=== PATIENT | female | born 1990 | race Caucasian/White ===

== ENCOUNTER 2017-04-07 11:07 | Inpatient (IN) | payer MEDICAID ==
[~2017-04-07] VITALS: Ht 170.2 cm; Wt 54.5 kg
[2017-04-07 11:39] LABS: BASOPHILS % (AUTO) 0.1 % (0-1); EOSINOPHILS # (AUTO) 0.3 X10'3 (0-0.9); EOSINOPHILS % (AUTO) 1.8 % (0-6); HEMATOCRIT 37.3 % (35.0-45.0); HEMOGLOBIN 12.8 g/dl (12.0-16.0); LYMPHOCYTES % (AUTO) 5.4 % (21-51); MEAN CORPUSCULAR HGB CONC 34.4 % (33.0-36.5); MEAN CORPUSCULAR VOLUME 84.4 FL (78-98); MEAN PLATELET VOLUME 7.7 FL (7.4-10.4); MONOCYTES # (AUTO) 1.1 X10'3 (0-0.9); MONOCYTES % (AUTO) 5.9 % (2-12); NEUTROPHILS # (AUTO) 15.8 X10'3 (1.8-7.7); NEUTROPHILS % (AUTO) 86.8 % (42-75); PLATELET COUNT 270 X10'3 (140-440); RED BLOOD COUNT 4.42 X10'6 (4.20-5.60); RED CELL DISTRIBUTION WIDTH 15.4 % (11.5-14.5); WHITE BLOOD COUNT 18.2 X10'3 (4.5-11.0)
[2017-04-07 11:49] LABS: INR 1.1 INR; PARTIAL THROMBOPLASTIN TIME 33 SECONDS (22-32); PROTHROMBIN TIME 11.2 SECONDS (9.0-12.0)
[2017-04-07 11:55] LABS: ALANINE AMINOTRANSFERASE 73 U/L (12-78); ALBUMIN 3.3 G/DL (3.4-5.0); ALBUMIN/GLOBULIN RATIO 0.6 (1.1-1.5); ALKALINE PHOSPHATASE 109 IU/L (46-116); ANION GAP 10 (8-16); ASPARTATE AMINO TRANSFERASE 37 U/L (10-37); BILIRUBIN,TOTAL 0.6 MG/DL (0.1-1.0); BLOOD UREA NITROGEN 11 MG/DL (7-18); BUN/CREATININE RATIO 14.3 (6.6-38.0); CALCIUM 9.4 MG/DL (8.5-10.1); CHLORIDE 97 MMOL/L (99-107); CREATININE 0.77 MG/DL (0.40-0.90); GLUCOSE 88 MG/DL (70-104); POTASSIUM 3.8 MMOL/L (3.5-5.1); SODIUM 135 MMOL/L (135-145); TOTAL CARBON DIOXIDE 27.9 MMOL/L (24-32); TOTAL PROTEIN 8.5 G/DL (6.4-8.2); eGFR > 90 ML/MIN
[2017-04-07 11:56] LABS: CLARITY,URINE CLOUDY (Clear); COLOR,URINE YELLOW (Yellow); GLUCOSE, URINE NEGATIVE (Neg); KETONES,URINE 15 mg/dl (Neg); LEUKOCYTE ESTERASE ,URINE MODERATE (Neg); NITRITES, URINE POSITIVE (Neg); OCCULT BLOOD,URINE TRACE-LYSED (Neg); PROTEIN,URINE 30 mg/dl (Neg)
[2017-04-07 11:57] LABS: UA COLLECTION TYPE CLN CATCH MIDSTREAM
[2017-04-07 12:02] LABS: TOTAL CELLS COUNTED 100
[2017-04-07 12:03] LABS: PLATELET ESTIMATE NORMAL
[2017-04-07 12:12] LABS: BACTERIA,URINE 4+ /HPF (Neg); RBC,URINE 0-2 /HPF (0-2); WBC,URINE 30-50 /HPF (0-4)
[2017-04-07 12:13] LABS: AMORPHOUS URATES 1+; MUCUS STRANDS MODERATE /LPF (Neg); SQUAMOUS EPITHELIAL CELL,UR FEW /LPF (FEW)
[2017-04-07] MEDS ORDERED: piperacillin/tazo 3.375gm/50ml 50 ML IV ONE (12:20)
[2017-04-07] MEDS ORDERED: vancomycin/NS 1 GM ADD-VANTAGE 250 ML IV ONE (12:20)
[2017-04-07] MEDS ORDERED: normal saline 1000ML IV soln IVB ONE (12:20)
[2017-04-07] MEDS ORDERED: methadone 10mg tablet PO ONE ×2 (13:20→16:00)
[2017-04-07] MEDS ORDERED: NO HOME MEDS (14:12)
[2017-04-07 14:33] LABS: URINE HCG NEGATIVE (NEG)
[2017-04-07 14:56] LABS: URINE AMPHETAMINE SCREEN POSITIVE (Neg); URINE BARBITUATE SCREEN NEGATIVE (Neg); URINE BENZODIAZEPINES SCREEN NEGATIVE (Neg); URINE CANNABINOID SCREEN POSITIVE (Neg); URINE COCAINE SCREEN NEGATIVE (Neg); URINE METHADONE SCREEN NEGATIVE (Neg); URINE OPIATE SCREEN POSITIVE (Neg); URINE PHENCYCLIDINE SCREEN NEGATIVE (Neg)
[2017-04-07 15:15] VITALS: BP 100/58
[2017-04-07 16:03] LABS: HIV ANTIBODY 1&2 RAPID NON-REACTIVE (Neg)
[2017-04-07] MEDS ORDERED: LORazepam 2 mg/ml vial IV ONE (16:15)
[2017-04-07] MEDS: normal saline 1000ml 1,000 ML IV SCH (16:15)
[2017-04-07] MEDS ORDERED: methylPREDNISolone sod succ 125mg/2ml vial IV ONE (16:40)
[2017-04-07] MEDS ORDERED: LORazepam 2 mg/ml vial IV PRN (17:05)
[2017-04-07] MEDS ORDERED: albuterol 2.5 MG/3 ML nebule NEB PRN (17:55)
[2017-04-07] MEDS ORDERED: metoprolol tartrate 25mg tablet PO PRN (18:35)
[2017-04-07] MEDS ORDERED: acetaminophen 325mg tablet PO PRN (18:35)
[2017-04-07 20:22] VITALS: BP 93/55
[2017-04-07 20:30] VITALS: BP 86/50
[2017-04-07 21:00] VITALS: BP 92/51
[2017-04-07] MEDS ORDERED: ipratropium/albuterol 3ml nebule NEB SCH (21:00)
[2017-04-07 21:25] VITALS: BP 91/46
[2017-04-08] VITALS: BP 83/44
[2017-04-08] MEDS: normal saline 1000ml 1,000 ML IV SCH ×2 (00:08→08:51)
[2017-04-08] MEDS: methylPREDNISolone sod succ 125mg/2ml vial IV SCH ×2 (01:44→08:09)
[2017-04-08 03:24] VITALS: BP 90/61
[2017-04-08 04:30] VITALS: BP 92/62
[2017-04-08 05:13] LABS: BASOPHILS % (AUTO) 0.1 % (0-1); EOSINOPHILS % (AUTO) 0 % (0-6); HEMATOCRIT 29.9 % (35.0-45.0); HEMOGLOBIN 10.1 g/dl (12.0-16.0); LYMPHOCYTES # (AUTO) 0.6 X10'3 (1.1-4.8); LYMPHOCYTES % (AUTO) 9.7 % (21-51); MEAN CORPUSCULAR HEMOGLOBIN 28.7 PG (27.0-31.0); MEAN CORPUSCULAR HGB CONC 33.9 % (33.0-36.5); MEAN CORPUSCULAR VOLUME 84.5 FL (78-98); MEAN PLATELET VOLUME 8.2 FL (7.4-10.4); MONOCYTES # (AUTO) 0.2 X10'3 (0-0.9); MONOCYTES % (AUTO) 3.4 % (2-12); NEUTROPHILS # (AUTO) 5.7 X10'3 (1.8-7.7); NEUTROPHILS % (AUTO) 86.8 % (42-75); PLATELET COUNT 192 X10'3 (140-440); RED BLOOD COUNT 3.54 X10'6 (4.20-5.60); RED CELL DISTRIBUTION WIDTH 15.8 % (11.5-14.5); WHITE BLOOD COUNT 6.5 X10'3 (4.5-11.0)
[2017-04-08 05:45] LABS: ALBUMIN 2.5 G/DL (3.4-5.0); ANION GAP 7 (8-16); BLOOD UREA NITROGEN 11 MG/DL (7-18); BUN/CREATININE RATIO 16.4 (6.6-38.0); CALCIUM 8.1 MG/DL (8.5-10.1); CHLORIDE 104 MMOL/L (99-107); CREATININE 0.67 MG/DL (0.40-0.90); GLUCOSE 136 MG/DL (70-104); POTASSIUM 4.2 MMOL/L (3.5-5.1); SODIUM 138 MMOL/L (135-145); TOTAL CARBON DIOXIDE 27.1 MMOL/L (24-32); eGFR > 90 ML/MIN
[2017-04-08] MEDS ORDERED: normal saline 1000ml 1,000 ML IV ONE (07:45)
[2017-04-08 08:00] VITALS: BP 83/43
[2017-04-08] MEDS ORDERED: pantoprazole 40 MG vial IV SCH (08:00)
[2017-04-08] MEDS ORDERED: cefTRIAXone 1g/NS 100ml IVPB 100 ML IV SCH (08:00)
[2017-04-08] MEDS ORDERED: heparin, porcine 5000 units/ml vial SQ SCH (08:00)
[2017-04-08] MEDS ORDERED: azithromycin/NS 500mg/250ml 250 ML IV SCH (08:00)
[2017-04-08 08:30] VITALS: BP 102/58
[2017-04-08] MEDS ORDERED: methadone 10mg tablet PO SCH (09:00)
[2017-04-08 10:30] VITALS: BP 93/57
[2017-04-08] MEDS ORDERED: LEVO500T89 PO (15:02)
[2017-04-08] MEDS ORDERED: lactobacillus rhamnosus 10,000 MMU CELLS/CAPSULE PO SCH (17:30)
[2017-04-09 13:25] LABS: HEP A AB, IGM Negative (Negative); HEPATITIS C ANTIBODY >11.0 s/co ratio (0.0-0.9)
== END 2017-04-08 16:04 | disposition left against medical advice (07) | DRG 720 ==
LOC: ER 11:07 → ED HOLD 13:33 → CMPBEDREQ 19:49 → SUR 3N 20:20
PROVIDERS: ADMIT Family Medicine; ATTEND Hospitalist
DX: A41.9 Sepsis, unspecified organism (principal); J18.1 Lobar pneumonia, unspecified organism; N39.0 Urinary tract infection, site not specified; F11.20 Opioid dependence, uncomplicated; F12.90 Cannabis use, unspecified, uncomplicated; F15.10 Other stimulant abuse, uncomplicated; F32.9 Major depressive disorder, single episode, unspecified; F41.9 Anxiety disorder, unspecified; Z72.0 Tobacco use
CPT/HCPCS: 36415; 71045; 80048; 80053; 80305; 81001; 81025; 83605; 84145; 84484; 85025; 85610; 85730; 86703; 86706; 86709; 86803; 87040; 87070; 87077; 87088; 87186; 93005; 94760; 99285; C9113; J0456; J0696; J1644; J2543; J2930; J3370; J7030

== ENCOUNTER 2020-11-30 19:33 | Emergency (ER) | payer MEDICAID ==
[~2020-11-30] VITALS: Ht 170.2 cm; Wt 58.6 kg
[~2020-11-30 19:33] MED LIST: NO HOME MEDS
[2020-11-30] MEDS ORDERED: LIDOcaine 1% W/epiNEPHrine 1:200,000 10ml vial IJ ONE (22:00)
[2020-11-30] MEDS: TETanus/Pertussis (Acell)/Diphther VAC/PF (Tdap-Adult) 0.5ml syringe IMVAC ONE ×2 (22:29→22:45)
[2020-11-30] MEDS ORDERED: LIDOcaine 1% w/epiNEPHrine 1:200,000 30ml vial IJ ONE (22:30)
--- NOTE | 2020-11-30 22:45 | NUR ---
pt. refused tetnus
[2020-11-30 23:11] VITALS: BP 126/85
== END 2020-11-30 23:13 | disposition home or self-care (01) ==
LOC: ER 19:34
DX: S61.213A Laceration without foreign body of left middle finger without damage to nail, initial encounter (principal); R20.0 Anesthesia of skin; F11.90 Opioid use, unspecified, uncomplicated; W26.0XXA Contact with knife, initial encounter; Y93.89 Activity, other specified; Y92.89 Other specified places as the place of occurrence of the external cause; Y99.8 Other external cause status
CPT/HCPCS: 12001; 90715; 99282

== ENCOUNTER 2021-02-13 22:16 | Emergency (ER) | payer MEDICAID ==
[~2021-02-13] VITALS: Ht 170.2 cm; Wt 65.0 kg
[2021-02-13 23:12] LABS: BASOPHILS % (AUTO) 0.5 % (0-1); EOSINOPHILS # (AUTO) 0.1 X10'3 (0-0.9); EOSINOPHILS % (AUTO) 1.7 % (0-6); HEMATOCRIT 29.5 % (35.0-45.0); LYMPHOCYTES # (AUTO) 1.2 X10'3 (1.1-4.8); MEAN CORPUSCULAR HEMOGLOBIN 27.5 PG (27.0-31.0); MEAN CORPUSCULAR HGB CONC 33.8 g/dL (33.0-36.5); MEAN CORPUSCULAR VOLUME 81.5 FL (78-98); MEAN PLATELET VOLUME 7.8 FL (7.4-10.4); MONOCYTES # (AUTO) 0.9 X10'3 (0-0.9); MONOCYTES % (AUTO) 14.1 % (2-12); NEUTROPHILS # (AUTO) 3.9 X10'3 (1.8-7.7); NEUTROPHILS % (AUTO) 64.7 % (42-75); PLATELET COUNT 275 X10'3 (140-440); RED BLOOD COUNT 3.62 X10'6 (4.20-5.60); RED CELL DISTRIBUTION WIDTH 14.7 % (11.5-14.5); WHITE BLOOD COUNT 6.1 X10'3 (4.5-11.0)
[2021-02-13 23:23] LABS: ALANINE AMINOTRANSFERASE 25 U/L (12-78); ALBUMIN/GLOBULIN RATIO 0.6 (1.1-1.5); ALKALINE PHOSPHATASE 121 IU/L (46-116); ANION GAP 10 (8-16); ASPARTATE AMINO TRANSFERASE 17 U/L (10-37); BILIRUBIN,TOTAL 0.2 MG/DL (0.1-1.0); BLOOD UREA NITROGEN 11 MG/DL (7-18); BUN/CREATININE RATIO 19.6 (6.6-38.0); CALCIUM 9.3 MG/DL (8.5-10.1); CHLORIDE 103 MMOL/L (99-107); CREATININE 0.56 MG/DL (0.40-0.90); GLUCOSE 93 MG/DL (70-104); POTASSIUM 3.4 MMOL/L (3.5-5.1); SODIUM 139 MMOL/L (135-145); TOTAL CARBON DIOXIDE 26.1 MMOL/L (24-32); TOTAL PROTEIN 7.7 G/DL (6.4-8.2); eGFR > 90 ML/MIN
[2021-02-13 23:39] LABS: D-DIMER 1.03 MG/L FEU (0-0.50)
[2021-02-14] LABS: CLARITY,URINE CLOUDY (Clear); COLOR,URINE YELLOW (Yellow); GLUCOSE, URINE NEGATIVE (Neg); KETONES,URINE NEGATIVE (Neg); LEUKOCYTE ESTERASE ,URINE NEGATIVE (Neg); NITRITES, URINE POSITIVE (Neg); OCCULT BLOOD,URINE NEGATIVE (Neg); PROTEIN,URINE NEGATIVE (Neg); UROBILINOGEN,URINE 0.2 E.U/dL (0.2-1.0)
[2021-02-14 00:01] LABS: URINE HCG POSITIVE (NEG)
[2021-02-14 00:10] LABS: UA COLLECTION TYPE CLN CATCH MIDSTREAM
[2021-02-14 00:14] LABS: BACTERIA,URINE 4+ /HPF (Neg); RBC,URINE 0-2 /HPF (0-2)
[2021-02-14 00:15] LABS: MUCUS STRANDS FEW /LPF (Neg); SQUAMOUS EPITHELIAL CELL,UR FEW /LPF (FEW); URINE AMPHETAMINE SCREEN POSITIVE (Neg); URINE BARBITUATE SCREEN NEGATIVE (Neg); URINE BENZODIAZEPINES SCREEN NEGATIVE (Neg); URINE CANNABINOID SCREEN POSITIVE (Neg); URINE COCAINE SCREEN NEGATIVE (Neg); URINE METHADONE SCREEN NEGATIVE (Neg); URINE OPIATE SCREEN NEGATIVE (Neg); URINE PHENCYCLIDINE SCREEN NEGATIVE (Neg)
[2021-02-14] MEDS ORDERED: PNV1TABL7 PO (00:33)
[2021-02-14] MEDS ORDERED: enoxaparin 100mg/ml syringe SUBCUT ONE (00:35)
[2021-02-14 00:56] VITALS: BP 108/60
== END 2021-02-14 00:52 | disposition home or self-care (01) ==
LOC: ER 22:18
DX: O26.90 Pregnancy related conditions, unspecified, unspecified trimester (principal); Z20.822 Contact with and (suspected) exposure to COVID-19; R06.02 Shortness of breath; R05.9 Cough, unspecified; R09.89 Other specified symptoms and signs involving the circulatory and respiratory systems; F11.90 Opioid use, unspecified, uncomplicated; Z3A.00 Weeks of gestation of pregnancy not specified
CPT/HCPCS: 36415; 71045; 80053; 80305; 81001; 81025; 83880; 84484; 85025; 85379; 87077; 87088; 87186; 87635; 93005; 96372; 99285; C9803; J1650; 81003

== ENCOUNTER 2021-02-16 12:16 | Emergency (ER) | payer MEDICAID ==
[~2021-02-16] VITALS: Ht 170.2 cm; Wt 65.9 kg
[~2021-02-16 12:16] MED LIST changes: +PNV1TABL7 PO
[2021-02-16 12:49] VITALS: BP 158/99
[2021-02-16] MEDS ORDERED: enoxaparin 100mg/ml syringe SUBCUT ONE ×2 (15:35→15:45)
== END 2021-02-16 22:17 | disposition left against medical advice (07) ==
LOC: ER 12:17
DX: O99.511 Diseases of the respiratory system complicating pregnancy, first trimester (principal); R06.02 Shortness of breath; Z3A.01 Less than 8 weeks gestation of pregnancy; Z79.899 Other long term (current) drug therapy
CPT/HCPCS: 99281

== ENCOUNTER 2021-02-17 09:04 | Emergency (ER) | payer MEDICAID ==
[2021-02-17 10:36] LABS: D-DIMER 0.97 MG/L FEU (0-0.50)
[2021-02-17 10:41] LABS: ALANINE AMINOTRANSFERASE 29 U/L (12-78); ALBUMIN 3.1 G/DL (3.4-5.0); ALBUMIN/GLOBULIN RATIO 0.6 (1.1-1.5); ALKALINE PHOSPHATASE 119 IU/L (46-116); ANION GAP 12 (8-16); ASPARTATE AMINO TRANSFERASE 19 U/L (10-37); BILIRUBIN,TOTAL 0.2 MG/DL (0.1-1.0); BLOOD UREA NITROGEN 8 MG/DL (7-18); BUN/CREATININE RATIO 12.9 (6.6-38.0); CALCIUM 9.2 MG/DL (8.5-10.1); CHLORIDE 101 MMOL/L (99-107); CREATININE 0.62 MG/DL (0.40-0.90); GLUCOSE 147 MG/DL (70-104); POTASSIUM 3.6 MMOL/L (3.5-5.1); SODIUM 136 MMOL/L (135-145); TOTAL CARBON DIOXIDE 22.6 MMOL/L (24-32); eGFR > 90 ML/MIN
[2021-02-17 10:44] LABS: BASOPHILS % (AUTO) 0.3 % (0-1); EOSINOPHILS # (AUTO) 0.1 X10'3 (0-0.9); EOSINOPHILS % (AUTO) 1.3 % (0-6); HEMATOCRIT 32.2 % (35.0-45.0); HEMOGLOBIN 10.7 g/dl (12.0-16.0); LYMPHOCYTES # (AUTO) 1.1 X10'3 (1.1-4.8); MEAN CORPUSCULAR HGB CONC 33.2 g/dL (33.0-36.5); MEAN CORPUSCULAR VOLUME 81.5 FL (78-98); MEAN PLATELET VOLUME 8.1 FL (7.4-10.4); MONOCYTES # (AUTO) 0.5 X10'3 (0-0.9); MONOCYTES % (AUTO) 8.5 % (2-12); NEUTROPHILS # (AUTO) 4.3 X10'3 (1.8-7.7); NEUTROPHILS % (AUTO) 71.9 % (42-75); PLATELET COUNT 289 X10'3 (140-440); RED BLOOD COUNT 3.95 X10'6 (4.20-5.60); RED CELL DISTRIBUTION WIDTH 14.6 % (11.5-14.5)
[2021-02-17 14:22] VITALS: BP 113/70
== END 2021-02-17 14:28 | disposition home or self-care (01) ==
LOC: ER 09:04
DX: O26.891 Other specified pregnancy related conditions, first trimester (principal); R06.02 Shortness of breath; R00.0 Tachycardia, unspecified; R79.1 Abnormal coagulation profile; F11.90 Opioid use, unspecified, uncomplicated; Z79.899 Other long term (current) drug therapy; Z3A.01 Less than 8 weeks gestation of pregnancy
CPT/HCPCS: 36415; 71045; 78580; 80053; 85025; 85379; 93005; 99285; A9540

== ENCOUNTER 2021-09-28 12:09 | Emergency (ER) | payer MEDICAID ==
[~2021-09-28] VITALS: Ht 170.2 cm; Wt 68.2 kg
[2021-09-28 12:26] VITALS: BP 148/90
[2021-09-28 13:24] LABS: BASOPHILS % (AUTO) 0.4 % (0-1); EOSINOPHILS # (AUTO) 0.1 X10'3 (0-0.9); EOSINOPHILS % (AUTO) 1.4 % (0-6); HEMATOCRIT 30.8 % (35.0-45.0); HEMOGLOBIN 10.2 g/dl (12.0-16.0); LYMPHOCYTES # (AUTO) 1.7 X10'3 (1.1-4.8); LYMPHOCYTES % (AUTO) 25.6 % (21-51); MEAN CORPUSCULAR HEMOGLOBIN 27.1 PG (27.0-31.0); MEAN CORPUSCULAR HGB CONC 33.2 g/dL (33.0-36.5); MEAN CORPUSCULAR VOLUME 81.7 FL (78-98); MEAN PLATELET VOLUME 8.6 FL (7.4-10.4); MONOCYTES # (AUTO) 0.8 X10'3 (0-0.9); MONOCYTES % (AUTO) 11.6 % (2-12); PLATELET COUNT 267 X10'3 (140-440); RED BLOOD COUNT 3.78 X10'6 (4.20-5.60); RED CELL DISTRIBUTION WIDTH 17.4 % (11.5-14.5); WHITE BLOOD COUNT 6.5 X10'3 (4.5-11.0)
[2021-09-28 13:43] LABS: ALANINE AMINOTRANSFERASE 22 U/L (12-78); ALBUMIN/GLOBULIN RATIO 0.9 (1.1-1.5); ALKALINE PHOSPHATASE 84 IU/L (46-116); ANION GAP 12 (8-16); ASPARTATE AMINO TRANSFERASE 19 U/L (10-37); BILIRUBIN,TOTAL 0.2 MG/DL (0.1-1.0); BLOOD UREA NITROGEN 10 MG/DL (7-18); BUN/CREATININE RATIO 13.2 (6.6-38.0); CALCIUM 9.4 MG/DL (8.5-10.1); CHLORIDE 105 MMOL/L (99-107); CREATININE 0.76 MG/DL (0.40-0.90); GLUCOSE 119 MG/DL (70-104); POTASSIUM 3.4 MMOL/L (3.5-5.1); SODIUM 140 MMOL/L (135-145); TOTAL CARBON DIOXIDE 22.9 MMOL/L (24-32); TOTAL PROTEIN 8.5 G/DL (6.4-8.2); eGFR 89 ML/MIN
[2021-09-28 13:58] LABS: CLARITY,URINE BLOODY (Clear); COLOR,URINE RED (Yellow); UA COLLECTION TYPE CLN CATCH MIDSTREAM
[2021-09-28 13:59] LABS: URINE HCG NEGATIVE (NEG)
[2021-09-28 14:09] LABS: BACTERIA,URINE FEW /HPF (Neg); MUCUS STRANDS NONE SEEN /LPF (Neg); RBC,URINE TNTC /HPF (0-2); SQUAMOUS EPITHELIAL CELL,UR FEW /LPF (FEW); WBC,URINE 0-4 /HPF (0-4)
== END 2021-09-28 15:27 | disposition home or self-care (01) ==
LOC: ER 12:10
DX: O72.1 Other immediate postpartum hemorrhage (principal); F11.90 Opioid use, unspecified, uncomplicated
CPT/HCPCS: 36415; 80053; 81001; 81025; 85025; 99283

== ENCOUNTER 2021-12-24 08:52 | Emergency (ER) | payer MEDICAID ==
[~2021-12-24] VITALS: Ht 170.2 cm; Wt 68.0 kg
[2021-12-24 10:18] VITALS: BP 130/66
[2021-12-24] MEDS ORDERED: ketorolac trometh inj. 60 MG/2 ML VIAL IM ONE (12:45)
[2021-12-24] MEDS ORDERED: ketorolac trometh. 30mg/ml inj. IM ONE (12:50)
[2021-12-24] MEDS ORDERED: HYDR-3965 PO (13:05)
[2021-12-24] MEDS ORDERED: IBUP-1986 PO (13:05)
== END 2021-12-24 13:20 | disposition home or self-care (01) ==
LOC: ER 08:53
DX: S29.9XXA Unspecified injury of thorax, initial encounter (principal); S79.912A Unspecified injury of left hip, initial encounter; F17.200 Nicotine dependence, unspecified, uncomplicated; F11.90 Opioid use, unspecified, uncomplicated; Z79.899 Other long term (current) drug therapy; V19.9XXA Pedal cyclist (driver) (passenger) injured in unspecified traffic accident, initial encounter; Y93.89 Activity, other specified; Y92.488 Other paved roadways as the place of occurrence of the external cause; Y99.8 Other external cause status
CPT/HCPCS: 96372; 99283; J1885

== ENCOUNTER 2022-02-20 12:40 | Inpatient (IN) | payer MEDICAID ==
[~2022-02-20] VITALS: Ht 170.2 cm; Wt 68.2 kg
[~2022-02-20 12:40] MED LIST changes: +IBUP-1986 PO
[2022-02-20 13:59] LABS: CLARITY,URINE CLEAR (Clear); COLOR,URINE YELLOW (Yellow); GLUCOSE, URINE NEGATIVE (Neg); KETONES,URINE NEGATIVE (Neg); LEUKOCYTE ESTERASE ,URINE NEGATIVE (Neg); NITRITES, URINE NEGATIVE (Neg); OCCULT BLOOD,URINE NEGATIVE (Neg); PH,URINE 6.5 (4.8-8.0); PROTEIN,URINE 30 mg/dl (Neg); URINE HCG NEGATIVE (NEG); UROBILINOGEN,URINE 0.2 E.U/dL (0.2-1.0)
[2022-02-20 14:23] LABS: UA COLLECTION TYPE CLN CATCH MIDSTREAM
[2022-02-20 14:24] LABS: BACTERIA,URINE FEW /HPF (Neg); MUCUS STRANDS NONE SEEN /LPF (Neg); RBC,URINE NONE SEEN /HPF (0-2); SQUAMOUS EPITHELIAL CELL,UR FEW /LPF (FEW); WBC,URINE 0-4 /HPF (0-4)
[2022-02-20 14:40] LABS: BASOPHILS % (AUTO) 0.1 % (0-1); EOSINOPHILS % (AUTO) 0.1 % (0-6); HEMATOCRIT 29.5 % (35.0-45.0); LYMPHOCYTES # (AUTO) 0.6 X10'3 (1.1-4.8); LYMPHOCYTES % (AUTO) 3.5 % (21-51); MEAN CORPUSCULAR HEMOGLOBIN 23.3 PG (27.0-31.0); MEAN CORPUSCULAR HGB CONC 30.7 g/dL (33.0-36.5); MEAN CORPUSCULAR VOLUME 75.9 FL (78-98); MONOCYTES # (AUTO) 1.2 X10'3 (0-0.9); MONOCYTES % (AUTO) 6.6 % (2-12); NEUTROPHILS % (AUTO) 89.7 % (42-75); PLATELET COUNT 211 X10'3 (140-440); RED BLOOD COUNT 3.88 X10'6 (4.20-5.60); RED CELL DISTRIBUTION WIDTH 19.5 % (11.5-14.5); WHITE BLOOD COUNT 17.8 X10'3 (4.5-11.0)
[2022-02-20 14:46] LABS: ALANINE AMINOTRANSFERASE 30 U/L (12-78); ALBUMIN 3.4 G/DL (3.4-5.0); ALBUMIN/GLOBULIN RATIO 0.8 (1.1-1.5); ALKALINE PHOSPHATASE 82 IU/L (46-116); ANION GAP 9 (8-16); ASPARTATE AMINO TRANSFERASE 34 U/L (10-37); BILIRUBIN,TOTAL 0.3 MG/DL (0.1-1.0); BLOOD UREA NITROGEN 10 MG/DL (7-18); BUN/CREATININE RATIO 12.7 (6.6-38.0); CALCIUM 8.8 MG/DL (8.5-10.1); CHLORIDE 101 MMOL/L (99-107); CREATININE 0.79 MG/DL (0.40-0.90); GLUCOSE 88 MG/DL (70-104); LIPASE 138 U/L (73-393); SODIUM 135 MMOL/L (135-145); TOTAL CARBON DIOXIDE 25.1 MMOL/L (24-32); TOTAL PROTEIN 7.9 G/DL (6.4-8.2); eGFR 85 ML/MIN
[2022-02-20 14:48] LABS: POTASSIUM 2.8 MMOL/L (3.5-5.1)
[2022-02-20 15:06] LABS: ANISOCYTOSIS 2+; MICROCYTOSIS 1+; PLATELET ESTIMATE NORMAL
[2022-02-20] MEDS ORDERED: proCHLORperazine 10 MG/2 ml inj IV ONE (19:40)
[2022-02-20] MEDS ORDERED: diphenhydrAMINE 50 mg/ml inj IV ONE (19:40)
[2022-02-20] MEDS ORDERED: magnesium 2GM in 50ml NS 50 ML IV ONE (19:40)
[2022-02-20] MEDS ORDERED: potassium Cl 20 mEq SR tablet PO ONE (19:50)
[2022-02-20] MEDS ORDERED: potassium Cl 10 mEq/100mL bag IV ONE (19:50)
[2022-02-20] MEDS ORDERED: normal saline 1000ML IV soln IV ONE (19:51)
[2022-02-20] MEDS ORDERED: acetaminophen 325mg tablet PO ONE (21:40)
[2022-02-20] MEDS ORDERED: iohexol 300mg/ml 100ml inj. ONE (22:18)
[2022-02-20] MEDS ORDERED: CefTRIAXone/D5W-Rocephin 1gm 50 ML IV ONE (23:15)
[2022-02-21] MEDS ORDERED: magnesium Cl slow-release 64mg tablet PO PRN (00:45)
[2022-02-21] MEDS ORDERED: mag hydrox/Alum hydrox/simeth 30ml oral suspension PO PRN (00:45)
[2022-02-21] MEDS ORDERED: HYDROcodone/acetaminophen 10/325mg tab PO PRN (00:45)
[2022-02-21] MEDS ORDERED: HYDROcodone/acetaminophen 5mg/325mg tablet PO PRN (00:45)
[2022-02-21] MEDS ORDERED: acetaminophen 325mg tablet PO PRN (00:45)
[2022-02-21] MEDS ORDERED: potassium Cl 20 mEq SR tablet PO PRN ×2 (00:45)
[2022-02-21] MEDS ORDERED: magnesium 4gm in 100ml NS 100 ML IV PRN (00:45)
[2022-02-21] MEDS ORDERED: potassium Cl 40MEQ/1/2NS 520ml 520 ML IV PRN (00:45)
[2022-02-21] MEDS ORDERED: magnesium hydroxide 30ml (MOM) UD suspension PO PRN (00:45)
[2022-02-21] MEDS ORDERED: ondansetron/PF 4mg/2ml inj IV PRN (00:45)
[2022-02-21] MEDS ORDERED: morphine 2 MG/ML inj. syringe IV PRN ×2 (00:45)
[2022-02-21] MEDS: normal saline 1000ml 1,000 ML IV SCH ×3 (01:43→17:13)
[2022-02-21] MEDS ORDERED: FLUO-1 PO (04:40)
[2022-02-21] MEDS ORDERED: BUSP5TAB3 PO (04:40)
[2022-02-21 05:37] LABS: ALANINE AMINOTRANSFERASE 22 U/L (12-78); ALBUMIN 2.5 G/DL (3.4-5.0); ALBUMIN/GLOBULIN RATIO 0.7 (1.1-1.5); ALKALINE PHOSPHATASE 59 IU/L (46-116); ANION GAP 13 (8-16); ASPARTATE AMINO TRANSFERASE 28 U/L (10-37); BILIRUBIN,TOTAL 0.2 MG/DL (0.1-1.0); BLOOD UREA NITROGEN 4 MG/DL (7-18); BUN/CREATININE RATIO 7.4 (6.6-38.0); CALCIUM 7.6 MG/DL (8.5-10.1); CHLORIDE 105 MMOL/L (99-107); CREATININE 0.54 MG/DL (0.40-0.90); FERRITIN 59 NG/ML (8-252); GLUCOSE 82 MG/DL (70-104); SODIUM 137 MMOL/L (135-145); TOTAL CARBON DIOXIDE 19.3 MMOL/L (24-32); TOTAL PROTEIN 6.1 G/DL (6.4-8.2); eGFR > 90 ML/MIN
[2022-02-21 05:44] LABS: POTASSIUM 2.9 MMOL/L (3.5-5.1)
[2022-02-21] MEDS ORDERED: potassium Cl 20 mEq SR tablet PO STA (05:50)
[2022-02-21] MEDS: docusate sod 100mg capsule PO SCH ×2 (06:57→20:00)
[2022-02-21 07:40] LABS: % IRON SATURATION 3 % (11-46); IRON 7 UG/DL (49-151); TOTAL IRON BINDING CAPACITY 262 UG/DL (259-388)
[2022-02-21] MEDS ORDERED: CefTRIAXone/D5W-Rocephin 1gm 50 ML IV SCH ×2 (08:00→10:52)
[2022-02-21 11:37] VITALS: BP 117/66
[2022-02-21 18:00] VITALS: BP 118/74
--- NOTE | 2022-02-21 18:14 | NUR ---
Problems reprioritized. Patient report given, questions answered & plan of care reviewed with MIKE APODACA.
--- NOTE | 2022-02-21 18:30 | NUR ---
Patient in room [facility]. I have received report from Mari and had the opportunity to ask questions and assume patient care.
--- NOTE | 2022-02-21 21:03 | NUR ---
DR HERNANDEZ PATIENT IN IS GOING AMA,HER NAME IS RAHEEM SNYDER IN FOR KIDNEY INFECTON. [facility]
--- NOTE | 2022-02-21 21:05 | NUR ---
Patient signed her AMA paperwork and I walked her to the lobby, her IV was removed before she left and I did page the global compensation analyst MD and notified him of the decision by the patient and the reasoning for it.
== END 2022-02-21 21:10 | disposition left against medical advice (07) | DRG 720 ==
LOC: ER 12:41 → ED HOLD 02-21 00:49 → EDBEDREQ 02-21 07:20 → SUR 3N 02-21 08:40
PROVIDERS: ADMIT Family Medicine; ATTEND Family Medicine
PROC: BW211ZZ Computerized Tomography (CT Scan) of Abdomen and Pelvis using Low Osmolar Contrast (ICD-10-PCS; principal; 2022-02-20)
DX: A41.9 Sepsis, unspecified organism (principal); D50.9 Iron deficiency anemia, unspecified; E87.6 Hypokalemia; F11.90 Opioid use, unspecified, uncomplicated; K52.9 Noninfective gastroenteritis and colitis, unspecified; Z20.822 Contact with and (suspected) exposure to COVID-19; N10 Acute pyelonephritis; Z53.29 Procedure and treatment not carried out because of patient's decision for other reasons; Z79.899 Other long term (current) drug therapy
CPT/HCPCS: 36415; 71045; 74177; 80053; 81001; 81025; 82607; 82728; 83540; 83550; 83605; 83690; 84132; 84145; 85008; 85025; 87040; 87081; 87502; 87503; 87635; 99285; C9803; G0378; J0696; J0780; J1200; J3475; J3480; J3490; J7030; Q9967

== ENCOUNTER 2022-02-24 13:19 | Emergency (ER) | payer MEDICAID ==
[~2022-02-24] VITALS: Ht 170.2 cm; Wt 68.2 kg
[~2022-02-24 13:19] MED LIST changes: +BUSP5TAB3 PO; +FLUO-1 PO; -NO HOME MEDS
[2022-02-24 13:45] VITALS: BP 119/73
[2022-02-24 14:25] LABS: CLARITY,URINE SLIGHTLY CLOUDY (Clear); COLOR,URINE YELLOW (Yellow); GLUCOSE, URINE NEGATIVE (Neg); KETONES,URINE NEGATIVE (Neg); LEUKOCYTE ESTERASE ,URINE NEGATIVE (Neg); NITRITES, URINE NEGATIVE (Neg); OCCULT BLOOD,URINE NEGATIVE (Neg); PROTEIN,URINE TRACE mg/dl (Neg); UROBILINOGEN,URINE 0.2 E.U/dL (0.2-1.0)
[2022-02-24 14:27] LABS: UA COLLECTION TYPE VOIDED
[2022-02-24 14:41] LABS: BACTERIA,URINE 2+ /HPF (Neg); CAL OXALATE CRYSTALS 2+ /HPF (NEGATIVE); MUCUS STRANDS MANY /LPF (Neg); RBC,URINE NONE SEEN /HPF (0-2); SQUAMOUS EPITHELIAL CELL,UR MANY /LPF (FEW); WBC,URINE 0-4 /HPF (0-4)
[2022-02-24 16:05] LABS: BASOPHILS % (AUTO) 0.6 % (0-1); EOSINOPHILS # (AUTO) 0.1 X10'3 (0-0.9); EOSINOPHILS % (AUTO) 1.5 % (0-6); HEMATOCRIT 32.4 % (35.0-45.0); HEMOGLOBIN 10.1 g/dl (12.0-16.0); LYMPHOCYTES # (AUTO) 1.9 X10'3 (1.1-4.8); MEAN CORPUSCULAR HEMOGLOBIN 23.3 PG (27.0-31.0); MEAN PLATELET VOLUME 8.3 FL (7.4-10.4); MONOCYTES # (AUTO) 0.9 X10'3 (0-0.9); MONOCYTES % (AUTO) 11.6 % (2-12); NEUTROPHILS # (AUTO) 4.6 X10'3 (1.8-7.7); NEUTROPHILS % (AUTO) 61.3 % (42-75); PLATELET COUNT 425 X10'3 (140-440); RED BLOOD COUNT 4.32 X10'6 (4.20-5.60); RED CELL DISTRIBUTION WIDTH 19.7 % (11.5-14.5); WHITE BLOOD COUNT 7.5 X10'3 (4.5-11.0)
[2022-02-24 16:23] LABS: ALANINE AMINOTRANSFERASE 23 U/L (12-78); ALBUMIN 3.6 G/DL (3.4-5.0); ALBUMIN/GLOBULIN RATIO 0.7 (1.1-1.5); ALKALINE PHOSPHATASE 78 IU/L (46-116); ANION GAP 9 (8-16); ASPARTATE AMINO TRANSFERASE 16 U/L (10-37); BILIRUBIN,TOTAL 0.2 MG/DL (0.1-1.0); BLOOD UREA NITROGEN 6 MG/DL (7-18); BUN/CREATININE RATIO 8.2 (6.6-38.0); CALCIUM 9.4 MG/DL (8.5-10.1); CHLORIDE 102 MMOL/L (99-107); CREATININE 0.73 MG/DL (0.40-0.90); GLUCOSE 103 MG/DL (70-104); POTASSIUM 4.2 MMOL/L (3.5-5.1); SODIUM 140 MMOL/L (135-145); TOTAL PROTEIN 8.5 G/DL (6.4-8.2); eGFR > 90 ML/MIN
[2022-02-24 17:20] LABS: ANISOCYTOSIS 2+; ELLIPTOCYTES FEW; MICROCYTOSIS 1+; PLATELET ESTIMATE NORMAL; ROULEAUX 1+
== END 2022-02-24 17:41 | disposition home or self-care (01) ==
LOC: ER 13:20
DX: R11.2 Nausea with vomiting, unspecified (principal); R10.9 Unspecified abdominal pain
CPT/HCPCS: 36415; 80053; 81001; 85008; 85025; 99283

== ENCOUNTER 2022-06-24 22:41 | Emergency (ER) | payer MEDICAID ==
[~2022-06-24] VITALS: Ht 170.2 cm; Wt 68.2 kg
[2022-06-24 22:50] VITALS: BP 130/81
--- NOTE | 2022-06-24 23:02 | NUR ---
CLUB ATTENDANT TO PT BEDSIDE AT THIS TIME
[2022-06-24 23:18] LABS: COLOR,URINE YELLOW (Yellow); GLUCOSE, URINE NEGATIVE (Neg); KETONES,URINE NEGATIVE (Neg); LEUKOCYTE ESTERASE ,URINE NEGATIVE (Neg); NITRITES, URINE NEGATIVE (Neg); OCCULT BLOOD,URINE MODERATE (Neg); PROTEIN,URINE NEGATIVE (Neg); UROBILINOGEN,URINE 0.2 E.U/dL (0.2-1.0)
[2022-06-24 23:19] LABS: URINE HCG NEGATIVE (NEG)
[2022-06-24 23:20] LABS: BASOPHILS % (AUTO) 0.5 % (0-1); EOSINOPHILS # (AUTO) 0.2 X10'3 (0-0.9); EOSINOPHILS % (AUTO) 2.6 % (0-6); HEMOGLOBIN 10.4 g/dl (12.0-16.0); LYMPHOCYTES # (AUTO) 2.6 X10'3 (1.1-4.8); LYMPHOCYTES % (AUTO) 31.5 % (21-51); MEAN CORPUSCULAR HEMOGLOBIN 24.1 PG (27.0-31.0); MEAN CORPUSCULAR HGB CONC 31.4 g/dL (33.0-36.5); MEAN CORPUSCULAR VOLUME 76.8 FL (78-98); MEAN PLATELET VOLUME 8.2 FL (7.4-10.4); MONOCYTES # (AUTO) 0.7 X10'3 (0-0.9); MONOCYTES % (AUTO) 8.7 % (2-12); NEUTROPHILS # (AUTO) 4.7 X10'3 (1.8-7.7); NEUTROPHILS % (AUTO) 56.7 % (42-75); PLATELET COUNT 343 X10'3 (140-440); RED CELL DISTRIBUTION WIDTH 18.5 % (11.5-14.5); WHITE BLOOD COUNT 8.3 X10'3 (4.5-11.0)
[2022-06-24 23:26] LABS: UA COLLECTION TYPE NON-SPECIFIED
[2022-06-24 23:27] LABS: CLARITY,URINE SLIGHTLY CLOUDY (Clear)
[2022-06-24 23:29] LABS: BACTERIA,URINE FEW /HPF (Neg); MUCUS STRANDS FEW /LPF (Neg); RBC,URINE 0-2 /HPF (0-2); SQUAMOUS EPITHELIAL CELL,UR MANY /LPF (FEW); WBC,URINE 0-4 /HPF (0-4)
[2022-06-24 23:33] LABS: ALANINE AMINOTRANSFERASE 16 U/L (12-78); ALBUMIN 3.7 G/DL (3.4-5.0); ALKALINE PHOSPHATASE 92 IU/L (46-116); ANION GAP 13 (8-16); ASPARTATE AMINO TRANSFERASE 14 U/L (10-37); BILIRUBIN,TOTAL 0.2 MG/DL (0.1-1.0); BLOOD UREA NITROGEN 10 MG/DL (7-18); BUN/CREATININE RATIO 14.5 (10.0-20.0); CALCIUM 8.2 MG/DL (8.5-10.1); CHLORIDE 105 MMOL/L (99-107); CREATININE 0.69 MG/DL (0.40-0.90); GLUCOSE 99 MG/DL (70-104); LIPASE 152 U/L (73-393); POTASSIUM 3.8 MMOL/L (3.5-5.1); SODIUM 140 MMOL/L (135-145); TOTAL CARBON DIOXIDE 22.3 MMOL/L (24-32); TOTAL PROTEIN 7.5 G/DL (6.4-8.2); eGFR > 90 ML/MIN
[2022-06-24] MEDS ORDERED: CHLO25CA10 PO (23:42)
[2022-06-24] MEDS ORDERED: chlordiazePOXIDE 25mg capsule PO ONE (23:50)
== END 2022-06-25 | disposition home or self-care (01) ==
LOC: ER 22:42
DX: F10.139 Alcohol abuse with withdrawal, unspecified (principal); Y90.9 Presence of alcohol in blood, level not specified
CPT/HCPCS: 36415; 80053; 81001; 81025; 83690; 85025; 99283

== ENCOUNTER 2022-07-20 10:11 | Emergency (ER) | payer MEDICAID ==
[~2022-07-20] VITALS: Ht 170.2 cm; Wt 72.6 kg
[~2022-07-20 10:11] MED LIST changes: +CHLO25CA10 PO
[2022-07-20 10:37] LABS: URINE HCG NEGATIVE (NEG)
[2022-07-20 10:44] LABS: CLARITY,URINE SLIGHTLY CLOUDY (Clear); COLOR,URINE YELLOW (Yellow); GLUCOSE, URINE NEGATIVE (Neg); KETONES,URINE NEGATIVE (Neg); LEUKOCYTE ESTERASE ,URINE LARGE (Neg); NITRITES, URINE NEGATIVE (Neg); OCCULT BLOOD,URINE SMALL (Neg); PROTEIN,URINE NEGATIVE (Neg); UROBILINOGEN,URINE 0.2 E.U/dL (0.2-1.0)
[2022-07-20 10:47] LABS: UA COLLECTION TYPE CLN CATCH MIDSTREAM
[2022-07-20] MEDS ORDERED: dicyclomine 10mg/ml 2ml ampule IM ONE (10:50)
[2022-07-20] MEDS ORDERED: proCHLORperazine 10 MG/2 ml inj IV ONE (10:50)
[2022-07-20] MEDS ORDERED: normal saline 1000ML IV soln IVB ONE (10:50)
[2022-07-20 10:51] LABS: BACTERIA,URINE FEW /HPF (Neg); MUCUS STRANDS FEW /LPF (Neg); RENAL CELLS, URINE FEW /HPF; SQUAMOUS EPITHELIAL CELL,UR MANY /LPF (FEW); TRANSITIONAL EPI CELLS,URINE FEW /HPF; WBC,URINE 20-30 /HPF (0-4)
[2022-07-20 11:08] LABS: BASOPHILS % (AUTO) 0.1 % (0-1); EOSINOPHILS # (AUTO) 0.1 X10'3 (0-0.9); EOSINOPHILS % (AUTO) 0.7 % (0-6); HEMATOCRIT 33.2 % (35.0-45.0); HEMOGLOBIN 10.4 g/dl (12.0-16.0); LYMPHOCYTES # (AUTO) 1.2 X10'3 (1.1-4.8); LYMPHOCYTES % (AUTO) 9.2 % (21-51); MEAN CORPUSCULAR HEMOGLOBIN 24.4 PG (27.0-31.0); MEAN CORPUSCULAR HGB CONC 31.3 g/dL (33.0-36.5); MEAN CORPUSCULAR VOLUME 78.1 FL (78-98); MEAN PLATELET VOLUME 8.6 FL (7.4-10.4); MONOCYTES # (AUTO) 0.9 X10'3 (0-0.9); MONOCYTES % (AUTO) 7.1 % (2-12); NEUTROPHILS # (AUTO) 10.9 X10'3 (1.8-7.7); NEUTROPHILS % (AUTO) 82.9 % (42-75); PLATELET COUNT 251 X10'3 (140-440); RED BLOOD COUNT 4.26 X10'6 (4.20-5.60); RED CELL DISTRIBUTION WIDTH 19.7 % (11.5-14.5); WHITE BLOOD COUNT 13.1 X10'3 (4.5-11.0)
[2022-07-20 11:18] LABS: ALANINE AMINOTRANSFERASE 14 U/L (12-78); ALBUMIN 3.7 G/DL (3.4-5.0); ALBUMIN/GLOBULIN RATIO 0.9 (1.1-1.5); ALKALINE PHOSPHATASE 109 IU/L (46-116); ANION GAP 12 (8-16); ASPARTATE AMINO TRANSFERASE 17 U/L (10-37); BILIRUBIN,TOTAL 0.3 MG/DL (0.1-1.0); BLOOD UREA NITROGEN 8 MG/DL (7-18); CALCIUM 8.6 MG/DL (8.5-10.1); CHLORIDE 104 MMOL/L (99-107); CREATININE 0.57 MG/DL (0.40-0.90); GLUCOSE 81 MG/DL (70-104); LIPASE 120 U/L (73-393); POTASSIUM 3.5 MMOL/L (3.5-5.1); SODIUM 137 MMOL/L (135-145); TOTAL CARBON DIOXIDE 20.9 MMOL/L (24-32); TOTAL PROTEIN 7.7 G/DL (6.4-8.2); eGFR > 90 ML/MIN
[2022-07-20 11:26] LABS: ANISOCYTOSIS 2+; MICROCYTOSIS 1+; PLATELET ESTIMATE NORMAL; STOMATOCYTES 1+
[2022-07-20] MEDS ORDERED: iohexol 300mg/ml 100ml inj. ONE (11:37)
[2022-07-20] MEDS ORDERED: LORazepam 2 mg/ml vial IV ONE (13:35)
[2022-07-20] MEDS ORDERED: METR-159 PO (15:41)
[2022-07-20] MEDS ORDERED: GABA300C PO (15:48)
[2022-07-20 16:07] VITALS: BP 131/66
== END 2022-07-20 16:08 | disposition home or self-care (01) ==
LOC: ER 10:11
DX: K52.9 Noninfective gastroenteritis and colitis, unspecified (principal); F10.10 Alcohol abuse, uncomplicated; Z86.19 Personal history of other infectious and parasitic diseases; Z79.899 Other long term (current) drug therapy; Y90.9 Presence of alcohol in blood, level not specified
CPT/HCPCS: 36415; 74177; 80053; 81001; 81025; 83690; 85008; 85025; 96361; 96372; 96374; 96375; 99285; J0500; J0780; J2060; J3490; J7030; Q9967

== ENCOUNTER 2023-04-30 18:10 | Inpatient (IN) | payer MEDICAID ==
[~2023-04-30] VITALS: Ht 170.2 cm; Wt 65.4 kg
[~2023-04-30 18:10] MED LIST changes: +GABA300C PO
[2023-04-30 18:57] LABS: BASOPHILS % (AUTO) 0.1 % (0-1); EOSINOPHILS % (AUTO) 0 % (0-6); HEMATOCRIT 30.4 % (35.0-45.0); HEMOGLOBIN 9.8 g/dl (12.0-16.0); LYMPHOCYTES # (AUTO) 0.7 X10'3 (1.1-4.8); LYMPHOCYTES % (AUTO) 6.1 % (21-51); MEAN CORPUSCULAR HEMOGLOBIN 23.8 PG (27.0-31.0); MEAN CORPUSCULAR HGB CONC 32.1 g/dL (33.0-36.5); MEAN CORPUSCULAR VOLUME 73.9 FL (78-98); MEAN PLATELET VOLUME 8.9 FL (7.4-10.4); MONOCYTES % (AUTO) 8.9 % (2-12); NEUTROPHILS # (AUTO) 9.9 X10'3 (1.8-7.7); NEUTROPHILS % (AUTO) 84.9 % (42-75); PLATELET COUNT 162 X10'3 (140-440); RED BLOOD COUNT 4.11 X10'6 (4.20-5.60); RED CELL DISTRIBUTION WIDTH 19.5 % (11.5-14.5); WHITE BLOOD COUNT 11.7 X10'3 (4.5-11.0)
[2023-04-30 19:22] LABS: ALBUMIN 2.8 G/DL (3.4-5.0); ANION GAP 16 (8-16); BLOOD UREA NITROGEN 7 MG/DL (7-18); BUN/CREATININE RATIO 10.8 (10.0-20.0); CALCIUM 8.4 MG/DL (8.5-10.1); CHLORIDE 100 MMOL/L (99-107); CREATININE 0.65 MG/DL (0.40-0.90); GLUCOSE 80 MG/DL (70-104); POTASSIUM 3.4 MMOL/L (3.5-5.1); PRO BRAIN NATRIURETIC PEPTIDE < 30 PG/ML (0-125); SODIUM 135 MMOL/L (135-145); TOTAL CARBON DIOXIDE 19.2 MMOL/L (24-32); eCRCL 116 ML/MIN; eGFR > 90 ML/MIN
[2023-04-30] MEDS: normal saline 1000ML IV soln IV ONE (19:27)
[2023-04-30] MEDS: CefTRIAXone 2gm/D5W 50ml BAG 50 ML IV ONE (19:27)
[2023-04-30] MEDS: acetaminophen 325mg tablet PO STA (19:28)
[2023-04-30 19:34] LABS: MAGNESIUM 1.8 MG/DL (1.5-2.4)
[2023-04-30] MEDS: azithromycin/NS 500mg/250ml 250 ML IV ONE (19:54)
[2023-04-30 20:00] LABS: HCG SERUM QL NEGATIVE
[2023-04-30] MEDS ORDERED: HYDROmorphone 1 mg/ml syringe IM ONE (20:15)
[2023-04-30] MEDS: ondansetron/PF 4mg/2ml inj IV ONE (20:17)
[2023-04-30] MEDS: HYDROmorphone 1 mg/ml syringe IV ONE (20:18)
[2023-04-30 20:23] LABS: ANISOCYTOSIS 2+; LARGE PLATELETS FEW; MICROCYTOSIS 1+; PLATELET ESTIMATE NORMAL
[2023-04-30 20:24] LABS: HYPOCHROMASIA 1+
[2023-04-30] MEDS: albuterol 2.5 MG/3 ML nebule CONTNEB STA (21:34)
[2023-04-30 21:36] VITALS: PULSE 107; RESP 18; O2SAT 93
[2023-04-30 21:47] VITALS: PULSE 106; RESP 18; O2SAT 100
[2023-04-30] MEDS ORDERED: NO HOME MEDS (22:43)
[2023-04-30] MEDS ORDERED: potassium Cl 20 mEq SR tablet PO PRN (23:05)
[2023-04-30] MEDS ORDERED: magnesium 2GM in 50ml NS 50 ML IV PRN (23:05)
[2023-04-30] MEDS ORDERED: acetaminophen 325mg tablet PO PRN (23:05)
[2023-04-30] MEDS ORDERED: magnesium Cl slow-release 64mg tablet PO PRN (23:05)
[2023-04-30] MEDS ORDERED: mag hydrox/Alum hydrox/simeth 30ml oral suspension PO PRN (23:05)
[2023-04-30] MEDS ORDERED: ondansetron/PF 4mg/2ml inj IV PRN (23:05)
[2023-04-30] MEDS ORDERED: magnesium hydroxide 30ml (MOM) UD suspension PO PRN (23:05)
[2023-04-30] MEDS ORDERED: potassium Cl 40MEQ/1/2NS 520ml 520 ML IV PRN (23:05)
[2023-04-30] MEDS ORDERED: magnesium 4gm in 100ml NS 100 ML IV PRN (23:05)
[2023-04-30] MEDS: normal saline 1000ml 1,000 ML IV SCH (23:26)
[2023-04-30] MEDS: methylPREDNISolone sod succ 125mg/2ml vial IV ONE (23:53)
[2023-05-01] VITALS (18 sets, daily range): BP systolic 139–146; BP diastolic 84–89; PULSE 62–109; RESP 16–20; TEMP 97.7–98.7; O2SAT 95–100
[2023-05-01] MEDS: thiamine 100mg/ml 2ml inj. IV ONE (00:55)
[2023-05-01] MEDS: ipratropium/albuterol 3ml nebule NEB SCH (01:00)
[2023-05-01 01:05] LABS: BILIRUBIN,URINE SMALL (Neg); CLARITY,URINE CLOUDY (Clear); COLOR,URINE AMBER (Yellow); GLUCOSE, URINE NEGATIVE (Neg); KETONES,URINE >=80 mg/dl (Neg); LEUKOCYTE ESTERASE ,URINE TRACE (Neg); NITRITES, URINE POSITIVE (Neg); OCCULT BLOOD,URINE LARGE (Neg); PROTEIN,URINE 100 mg/dl (Neg)
[2023-05-01 01:09] LABS: UA COLLECTION TYPE CLN CATCH MIDSTREAM
[2023-05-01 01:23] LABS: URINE AMPHETAMINE SCREEN POSITIVE (Neg); URINE BARBITUATE SCREEN NEGATIVE (Neg); URINE BENZODIAZEPINES SCREEN NEGATIVE (Neg); URINE CANNABINOID SCREEN POSITIVE (Neg); URINE COCAINE SCREEN NEGATIVE (Neg); URINE METHADONE SCREEN NEGATIVE (Neg); URINE OPIATE SCREEN POSITIVE (Neg); URINE PHENCYCLIDINE SCREEN NEGATIVE (Neg)
[2023-05-01 01:37] LABS: SQUAMOUS EPITHELIAL CELL,UR MODERATE /LPF (FEW)
[2023-05-01 01:38] LABS: TRICHOMONAS,URINE FEW /HPF (NEGATIVE)
[2023-05-01 01:39] LABS: BACTERIA,URINE FEW /HPF (Neg); RBC,URINE TNTC /HPF (0-2)
[2023-05-01] MEDS: docusate sod 100mg capsule PO SCH (07:53)
[2023-05-01] MEDS: K and/or MAG REPLACEMENT MC SCH (08:00)
[2023-05-01] MEDS: methylPREDNISolone sod succ/PF 40mg inj. IV SCH (08:12)
[2023-05-01] MEDS: CefTRIAXone/D5W-Rocephin 1gm 50 ML IV SCH (08:12)
[2023-05-01] MEDS: enoxaparin 40mg/0.4ml syringe SUBCUT SCH (08:13)
[2023-05-01] MEDS: azithromycin/NS 500mg/250ml 250 ML IV SCH (08:14)
[2023-05-01] MEDS: morphine 4 MG/ML inj SYRINge IV PRN (08:22)
[2023-05-01 09:05] LABS: STREP A SCREEN NEGATIVE (Neg)
[2023-05-01 09:26] LABS: MONOCYTES # (AUTO) 0.2 X10'3 (0-0.9); NEUTROPHILS # (AUTO) 6.9 X10'3 (1.8-7.7); RED BLOOD COUNT 3.72 X10'6 (4.20-5.60); WHITE BLOOD COUNT 7.4 X10'3 (4.5-11.0)
[2023-05-01 09:30] LABS: BASOPHILS % (AUTO) 0 % (0-1); EOSINOPHILS % (AUTO) 0 % (0-6); HEMATOCRIT 27.8 % (35.0-45.0); LYMPHOCYTES # (AUTO) 0.2 X10'3 (1.1-4.8); LYMPHOCYTES % (AUTO) 3.3 % (21-51); MEAN CORPUSCULAR HEMOGLOBIN 24.1 PG (27.0-31.0); MEAN CORPUSCULAR HGB CONC 32.3 g/dL (33.0-36.5); MEAN CORPUSCULAR VOLUME 74.8 FL (78-98); MEAN PLATELET VOLUME 9.5 FL (7.4-10.4); NEUTROPHILS % (AUTO) 93.7 % (42-75); PLATELET COUNT 148 X10'3 (140-440); RED CELL DISTRIBUTION WIDTH 19.6 % (11.5-14.5)
[2023-05-01 09:43] LABS: ALBUMIN 2.7 G/DL (3.4-5.0); ANION GAP 13 (8-16); BLOOD UREA NITROGEN 7 MG/DL (7-18); BUN/CREATININE RATIO 9.7 (10.0-20.0); CALCIUM 8.2 MG/DL (8.5-10.1); CHLORIDE 108 MMOL/L (99-107); CREATININE 0.72 MG/DL (0.40-0.90); GLUCOSE 180 MG/DL (70-104); POTASSIUM 3.6 MMOL/L (3.5-5.1); SODIUM 140 MMOL/L (135-145); eCRCL 109 ML/MIN; eGFR > 90 ML/MIN
[2023-05-01] MEDS: normal saline 500ml IV soln 500 ML IV ONE (10:30)
[2023-05-01] MEDS: LORazepam 2 mg/ml vial IV PRN (19:34)
[2023-05-02] VITALS (16 sets, daily range): BP systolic 112–142; BP diastolic 65–89; PULSE 68–110; RESP 14–20; TEMP 97.9–98.4; O2SAT 95–100
[2023-05-02 08:14] LABS: BASOPHILS % (AUTO) 0.1 % (0-1); EOSINOPHILS % (AUTO) 0 % (0-6); HEMATOCRIT 24.3 % (35.0-45.0); HEMOGLOBIN 7.9 g/dl (12.0-16.0); LYMPHOCYTES # (AUTO) 0.6 X10'3 (1.1-4.8); LYMPHOCYTES % (AUTO) 9.6 % (21-51); MEAN CORPUSCULAR HGB CONC 32.4 g/dL (33.0-36.5); MEAN CORPUSCULAR VOLUME 74.3 FL (78-98); MONOCYTES # (AUTO) 0.8 X10'3 (0-0.9); MONOCYTES % (AUTO) 12.4 % (2-12); NEUTROPHILS # (AUTO) 4.8 X10'3 (1.8-7.7); NEUTROPHILS % (AUTO) 77.9 % (42-75); PLATELET COUNT 133 X10'3 (140-440); RED BLOOD COUNT 3.27 X10'6 (4.20-5.60); RED CELL DISTRIBUTION WIDTH 19.7 % (11.5-14.5); WHITE BLOOD COUNT 6.2 X10'3 (4.5-11.0)
[2023-05-02 08:21] LABS: ALBUMIN 2.3 G/DL (3.4-5.0); ANION GAP 12 (8-16); BLOOD UREA NITROGEN 5 MG/DL (7-18); BUN/CREATININE RATIO 10.6 (10.0-20.0); CHLORIDE 109 MMOL/L (99-107); CREATININE 0.47 MG/DL (0.40-0.90); GLUCOSE 124 MG/DL (70-104); MAGNESIUM 1.8 MG/DL (1.5-2.4); POTASSIUM 3.3 MMOL/L (3.5-5.1); SODIUM 142 MMOL/L (135-145); TOTAL CARBON DIOXIDE 21.1 MMOL/L (24-32); eCRCL 167 ML/MIN; eGFR > 90 ML/MIN
[2023-05-02] MEDS: potassium Cl 20 mEq SR tablet PO PRN (08:44)
[2023-05-02 08:53] LABS: ANISOCYTOSIS 2+; HYPOCHROMASIA 1+; MICROCYTOSIS 1+; PLATELET ESTIMATE DECREASED
[2023-05-02 08:54] LABS: ELLIPTOCYTES FEW; TEAR DROP CELLS FEW
[2023-05-02] MEDS: VANCOMYCIN 1,500MG in normal saline IV soln 300 ML IV ONE (12:13)
[2023-05-02 12:53] LABS: ABSOLUTE RETICS # < 6000 /CUMM (23000-93000); RED BLOOD COUNT 3.85 X10'6 (4.20-5.60); RETICULOCYTE % (AUTO) < 0.2 % (0.5-1.5)
[2023-05-02 13:11] LABS: % IRON SATURATION 5 % (11-46); IRON 15 UG/DL (49-151); TOTAL IRON BINDING CAPACITY 294 UG/DL (259-388)
[2023-05-02 13:16] LABS: FERRITIN 103 NG/ML (8-252)
[2023-05-02] MEDS: sodium ferric gluc complex inj 125 MG in normal saline 100ml IV soln 100 ML IV SCH (14:41)
[2023-05-02] MEDS: vancomycin/NS 1 GM ADD-VANTAGE 250 ML IV SCH (20:02)
[2023-05-02] MEDS: methylPREDNISolone sod succ/PF 40mg inj. IV SCH (20:03)
[2023-05-03] VITALS (14 sets, daily range): BP systolic 132–155; BP diastolic 85–104; PULSE 79–149; RESP 16–22; TEMP 97.6–98.7; O2SAT 97–99
[2023-05-03 06:20] LABS: BASOPHILS % (AUTO) 0.1 % (0-1); EOSINOPHILS % (AUTO) 0 % (0-6); HEMOGLOBIN 8.3 g/dl (12.0-16.0); LYMPHOCYTES # (AUTO) 0.5 X10'3 (1.1-4.8); MONOCYTES # (AUTO) 0.4 X10'3 (0-0.9); NEUTROPHILS # (AUTO) 5.2 X10'3 (1.8-7.7); WHITE BLOOD COUNT 6.1 X10'3 (4.5-11.0)
[2023-05-03 06:22] LABS: HEMATOCRIT 25.5 % (35.0-45.0); LYMPHOCYTES % (AUTO) 8.1 % (21-51); MEAN CORPUSCULAR HEMOGLOBIN 24.1 PG (27.0-31.0); MEAN CORPUSCULAR HGB CONC 32.6 g/dL (33.0-36.5); MEAN CORPUSCULAR VOLUME 73.8 FL (78-98); MEAN PLATELET VOLUME 9.3 FL (7.4-10.4); MONOCYTES % (AUTO) 6.8 % (2-12); PLATELET COUNT 175 X10'3 (140-440); RED BLOOD COUNT 3.45 X10'6 (4.20-5.60); RED CELL DISTRIBUTION WIDTH 19.7 % (11.5-14.5)
[2023-05-03 06:27] LABS: ALBUMIN 2.6 G/DL (3.4-5.0); ANION GAP 12 (8-16); BLOOD UREA NITROGEN 6 MG/DL (7-18); CALCIUM 8.7 MG/DL (8.5-10.1); CHLORIDE 108 MMOL/L (99-107); GLUCOSE 170 MG/DL (70-104); MAGNESIUM 1.7 MG/DL (1.5-2.4); POTASSIUM 3.6 MMOL/L (3.5-5.1); SODIUM 141 MMOL/L (135-145); THYROID STIMULATING HORMONE 0.29 ulU/ml (0.34-4.50); TOTAL CARBON DIOXIDE 21.4 MMOL/L (24-32); eCRCL 131 ML/MIN; eGFR > 90 ML/MIN
[2023-05-03 07:15] LABS: ANISOCYTOSIS 2+; ELLIPTOCYTES 1+; MICROCYTOSIS 1+; PLATELET ESTIMATE NORMAL
[2023-05-03] MEDS: celeCOXIB 100mg capsule PO PRN (08:30)
[2023-05-03] MEDS: carVEDilol 3.125mg tablet PO SCH (10:31)
[2023-05-03] MEDS: sodium ferric gluc complex inj 125 MG in normal saline 100ml IV soln 100 ML IV SCH (10:31)
[2023-05-03 11:24] LABS: HEMOGLOBIN A1C 5.5 % (4.5-6.2)
[2023-05-03] MEDS: VANCOMYCIN LEVEL IJ ONE (11:30)
[2023-05-03] MEDS: VANCOmycin 1250MG/NS 250ml Bag 250 ML IV SCH (13:13)
[2023-05-04] VITALS (16 sets, daily range): BP systolic 137–155; BP diastolic 71–104; PULSE 68–127; RESP 16–24; TEMP 97.6–97.8; O2SAT 96–99
[2023-05-04 06:43] LABS: ALBUMIN 2.8 G/DL (3.4-5.0); ANION GAP 9 (8-16); BLOOD UREA NITROGEN 9 MG/DL (7-18); BUN/CREATININE RATIO 14.8 (10.0-20.0); CALCIUM 8.4 MG/DL (8.5-10.1); CHLORIDE 105 MMOL/L (99-107); CREATININE 0.61 MG/DL (0.40-0.90); GLUCOSE 122 MG/DL (70-104); MAGNESIUM 1.8 MG/DL (1.5-2.4); POTASSIUM 3.8 MMOL/L (3.5-5.1); SODIUM 141 MMOL/L (135-145); TOTAL CARBON DIOXIDE 26.6 MMOL/L (24-32); eCRCL 129 ML/MIN; eGFR > 90 ML/MIN
[2023-05-04 06:45] LABS: BASOPHILS % (AUTO) 0.1 % (0-1); EOSINOPHILS % (AUTO) 0 % (0-6); HEMATOCRIT 29.7 % (35.0-45.0); HEMOGLOBIN 9.5 g/dl (12.0-16.0); LYMPHOCYTES # (AUTO) 0.8 X10'3 (1.1-4.8); LYMPHOCYTES % (AUTO) 15.4 % (21-51); MEAN CORPUSCULAR HEMOGLOBIN 23.7 PG (27.0-31.0); MEAN CORPUSCULAR VOLUME 73.9 FL (78-98); MEAN PLATELET VOLUME 8.7 FL (7.4-10.4); MONOCYTES # (AUTO) 0.7 X10'3 (0-0.9); MONOCYTES % (AUTO) 12.6 % (2-12); NEUTROPHILS # (AUTO) 3.9 X10'3 (1.8-7.7); NEUTROPHILS % (AUTO) 71.9 % (42-75); PLATELET COUNT 239 X10'3 (140-440); RED BLOOD COUNT 4.02 X10'6 (4.20-5.60); RED CELL DISTRIBUTION WIDTH 19.9 % (11.5-14.5); WHITE BLOOD COUNT 5.5 X10'3 (4.5-11.0)
[2023-05-04] MEDS: thiamine 100mg tablet PO SCH (09:38)
[2023-05-04] MEDS ORDERED: LORazepam 2 mg/ml vial IV PRN (10:10)
[2023-05-04] MEDS: azithromycin 250mg tablet PO SCH (12:26)
[2023-05-04] MEDS ORDERED: VANCOMYCIN LEVEL IJ ONE (12:30)
[2023-05-04] MEDS ORDERED: FERR-119 PO (14:10)
[2023-05-04] MEDS ORDERED: DOCU100C40 PO (14:10)
[2023-05-04] MEDS ORDERED: ALBU2.5V7 NEB (14:10)
[2023-05-04] MEDS ORDERED: FOLI1TAB27 PO (14:10)
[2023-05-04] MEDS ORDERED: VIT1CAPS6 PO (14:10)
[2023-05-04] MEDS ORDERED: PRED10TA23 PO (14:10)
[2023-05-04] MEDS ORDERED: BUDE10.2 INH (14:10)
[2023-05-04] MEDS ORDERED: thiamine tablet PO (14:10)
[2023-05-04] MEDS: LORazepam 0.5 MG tablet PO PRN (15:29)
[2023-05-04] MEDS: LORazepam 0.5 MG tablet PO ONE (16:38)
[2023-05-04] MEDS ORDERED: metoprolol succinate 25mg (24-HOUR) SR. Tablet PO SCH (16:55)
[2023-05-04] MEDS: methylPREDNISolone sod succ/PF 40mg inj. IV SCH (19:49)
[2023-05-04] MEDS: carvedilol 6.25mg tablet PO SCH (19:49)
[2023-05-04] MEDS: EMPAGLIFLOZIN 10 MG TABLET PO SCH (19:50)
[2023-05-04] MEDS: spironolactone 25 MG tablet PO SCH (19:51)
[2023-05-04] MEDS: sacubitril/valsartan 24mg-26mg tablet PO SCH (19:52)
[2023-05-04] MEDS: LORazepam 1 MG tablet PO PRN (22:15)
[2023-05-05] VITALS (12 sets, daily range): BP systolic 100–133; BP diastolic 64–93; PULSE 72–151; RESP 14–23; TEMP 97.1–98; O2SAT 97–99
[2023-05-05 06:50] LABS: MEAN PLATELET VOLUME 8.5 FL (7.4-10.4); NEUTROPHILS # (AUTO) 3.8 X10'3 (1.8-7.7); NEUTROPHILS % (AUTO) 46.5 % (42-75); PLATELET COUNT 345 X10'3 (140-440); WHITE BLOOD COUNT 8.1 X10'3 (4.5-11.0)
[2023-05-05 06:52] LABS: HEMATOCRIT 34.5 % (35.0-45.0); HEMOGLOBIN 11.2 g/dl (12.0-16.0); MEAN CORPUSCULAR HEMOGLOBIN 24.2 PG (27.0-31.0); MEAN CORPUSCULAR HGB CONC 32.4 g/dL (33.0-36.5); MEAN CORPUSCULAR VOLUME 74.7 FL (78-98); RED BLOOD COUNT 4.62 X10'6 (4.20-5.60); RED CELL DISTRIBUTION WIDTH 19.7 % (11.5-14.5)
[2023-05-05 06:53] LABS: BASOPHILS % (AUTO) 0.1 % (0-1); EOSINOPHILS % (AUTO) 0.3 % (0-6); LYMPHOCYTES # (AUTO) 2.9 X10'3 (1.1-4.8); MONOCYTES # (AUTO) 1.4 X10'3 (0-0.9); MONOCYTES % (AUTO) 17.1 % (2-12)
[2023-05-05 07:16] LABS: ALBUMIN 2.7 G/DL (3.4-5.0); ANION GAP 12 (8-16); BLOOD UREA NITROGEN 13 MG/DL (7-18); CHLORIDE 107 MMOL/L (99-107); CREATININE 0.62 MG/DL (0.40-0.90); GLUCOSE 81 MG/DL (70-104); POTASSIUM 3.1 MMOL/L (3.5-5.1); SODIUM 143 MMOL/L (135-145); eCRCL 127 ML/MIN; eGFR > 90 ML/MIN
[2023-05-05] MEDS ORDERED: magnesium Cl slow-release 64mg tablet PO PRN (08:45)
[2023-05-05] MEDS ORDERED: magnesium 4gm in 100ml NS 100 ML IV PRN (08:45)
[2023-05-05] MEDS ORDERED: magnesium 2GM in 50ml NS 50 ML IV PRN (08:45)
[2023-05-05] MEDS ORDERED: potassium Cl 40MEQ/1/2NS 520ml 520 ML IV PRN (08:45)
[2023-05-05] MEDS: folic acid 1mg tablet PO SCH (08:51)
[2023-05-05 08:55] LABS: TOTAL CELLS COUNTED 100
[2023-05-05 08:56] LABS: PLATELET ESTIMATE NORMAL
[2023-05-05 08:59] LABS: ANISOCYTOSIS 2+; MICROCYTOSIS 1+
[2023-05-05 09:00] LABS: POLYCHROMASIA FEW
[2023-05-05 09:01] LABS: HYPOCHROMASIA 1+
[2023-05-05] MEDS: potassium Cl 20 mEq SR tablet PO PRN ×2 (09:56→20:05)
[2023-05-05] MEDS: lactose-reduced food (Ensure Enlive) - 237ml bottle PO SCH (17:30)
[2023-05-05] MEDS: LORazepam 2 mg/ml vial IV ONE (19:54)
[2023-05-05] MEDS: proCHLORperazine 10 MG/2 ml inj IV ONE (21:35)
[2023-05-05] MEDS: diphenhydrAMINE 50 mg/ml inj IV ONE (21:35)
[2023-05-05] MEDS: ketorolac trometh. 30mg/ml inj. IV ONE (21:35)
[2023-05-06 07:00] VITALS: BP 100/61; PULSE 54; RESP 17; TEMP 98.9; O2SAT 95
[2023-05-06 08:00] VITALS: RESP 17; O2SAT 95
[2023-05-06 09:47] LABS: BASOPHILS % (AUTO) 0.1 % (0-1); EOSINOPHILS % (AUTO) 0.2 % (0-6); HEMATOCRIT 38.1 % (35.0-45.0); HEMOGLOBIN 12.1 g/dl (12.0-16.0); LYMPHOCYTES # (AUTO) 2.9 X10'3 (1.1-4.8); LYMPHOCYTES % (AUTO) 28.7 % (21-51); MEAN CORPUSCULAR HEMOGLOBIN 24.4 PG (27.0-31.0); MEAN CORPUSCULAR HGB CONC 31.9 g/dL (33.0-36.5); MEAN CORPUSCULAR VOLUME 76.5 FL (78-98); MEAN PLATELET VOLUME 8.2 FL (7.4-10.4); MONOCYTES # (AUTO) 0.9 X10'3 (0-0.9); MONOCYTES % (AUTO) 8.8 % (2-12); NEUTROPHILS # (AUTO) 6.3 X10'3 (1.8-7.7); NEUTROPHILS % (AUTO) 62.2 % (42-75); PLATELET COUNT 431 X10'3 (140-440); RED BLOOD COUNT 4.98 X10'6 (4.20-5.60); WHITE BLOOD COUNT 10.1 X10'3 (4.5-11.0)
[2023-05-06 10:00] LABS: ALBUMIN 2.8 G/DL (3.4-5.0); ANION GAP 8 (8-16); BLOOD UREA NITROGEN 19 MG/DL (7-18); BUN/CREATININE RATIO 24.1 (10.0-20.0); CALCIUM 8.8 MG/DL (8.5-10.1); CHLORIDE 107 MMOL/L (99-107); CREATININE 0.79 MG/DL (0.40-0.90); GLUCOSE 153 MG/DL (70-104); POTASSIUM 3.9 MMOL/L (3.5-5.1); SODIUM 140 MMOL/L (135-145); TOTAL CARBON DIOXIDE 25.4 MMOL/L (24-32); eCRCL 99 ML/MIN; eGFR 84 ML/MIN
[2023-05-06 11:00] VITALS: BP 93/57; PULSE 125; RESP 13; TEMP 97.3; O2SAT 98
[2023-05-06] MEDS ORDERED: SPIR25TA PO (12:16)
[2023-05-06] MEDS ORDERED: EMPA10TA PO (12:16)
[2023-05-06] MEDS ORDERED: SACU1TAB PO (12:16)
[2023-05-06] MEDS ORDERED: CARV6.253 PO (12:16)
[2023-05-06] MEDS: albuterol 2.5 MG/3 ML nebule ONE (12:27)
[2023-05-06] MEDS ORDERED: LOSA25TA41 PO (12:45)
[2023-05-07] MEDS ORDERED: methylPREDNISolone sod succ/PF 40mg inj. IV SCH (08:00)
== END 2023-05-06 14:15 | disposition home or self-care (01) | DRG 720 ==
LOC: ER 18:11 → ED HOLD 23:04 → SUR 3N 05-01 16:45 → PCU 3S 05-04 18:37
PROVIDERS: ADMIT Surgery Surgical Critical Care; ATTEND Family Medicine
DX: A41.9 Sepsis, unspecified organism (principal); I50.23 Acute on chronic systolic (congestive) heart failure; J18.9 Pneumonia, unspecified organism; I42.7 Cardiomyopathy due to drug and external agent; J44.1 Chronic obstructive pulmonary disease with (acute) exacerbation; I47.19 Other supraventricular tachycardia; D50.9 Iron deficiency anemia, unspecified; E87.6 Hypokalemia; Z98.891 History of uterine scar from previous surgery; Z79.899 Other long term (current) drug therapy
CPT/HCPCS: 36415; 71045; 80048; 80202; 80305; 81001; 82728; 83036; 83540; 83550; 83605; 83735; 83880; 84145; 84439; 84443; 84484; 84703; 85007; 85008; 85025; 85045; 87040; 87077; 87081; 87186; 87502; 87503; 87811; 87880; 93005; 93306; 94640; 94760; 96365; 96367; 96375; 99291; G0378; J0456; J0696; J0780; J1170; J1200; J1650; J1885; J2060; J2270; J2405; J2916; J2920; J2930; J3370; J3411; J3490; J7030; J7040

== ENCOUNTER 2023-09-14 00:10 | Emergency (ER) | payer MEDICAID, OTHER ==
[~2023-09-14] VITALS: Ht 170.2 cm; Wt 60.1 kg
[~2023-09-14 00:10] MED LIST changes: +ALBU2.5V7 NEB; +BUDE10.2 INH; -BUSP5TAB3 PO; +CARV6.253 PO; -CHLO25CA10 PO; +DOCU100C40 PO; +EMPA10TA PO; +FERR-119 PO; -FLUO-1 PO; +FOLI1TAB27 PO; -GABA300C PO; -IBUP-1986 PO; +LOSA25TA41 PO; +NO HOME MEDS; -PNV1TABL7 PO; +SACU1TAB PO; +SPIR25TA PO; +VIT1CAPS6 PO; +thiamine tablet PO
[2023-09-14 05:09] VITALS: BP 118/84; PULSE 94; RESP 16; TEMP 98.6; O2SAT 99
== END 2023-09-14 05:13 | disposition home or self-care (01) ==
LOC: ER 00:11
DX: Z02.89 Encounter for other administrative examinations (principal); I42.8 Other cardiomyopathies; I50.9 Heart failure, unspecified; D64.9 Anemia, unspecified; F17.200 Nicotine dependence, unspecified, uncomplicated; F11.90 Opioid use, unspecified, uncomplicated; Z79.899 Other long term (current) drug therapy; Z79.52 Long term (current) use of systemic steroids
CPT/HCPCS: 99283

== ENCOUNTER 2024-03-24 19:24 | Emergency (ER) | payer MEDICAID ==
[~2024-03-24] VITALS: Ht 170.2 cm; Wt 73.2 kg
[2024-03-24] MEDS: normal saline 1000ml 1,000 ML IV ONE (20:27)
[2024-03-24 20:34] LABS: BASOPHILS % (AUTO) 0.2 % (0-1); EOSINOPHILS # (AUTO) 0.1 X10'3 (0-0.9); EOSINOPHILS % (AUTO) 0.8 % (0-6); HEMATOCRIT 34.8 % (35.0-45.0); HEMOGLOBIN 11.7 g/dl (12.0-16.0); LYMPHOCYTES # (AUTO) 1.2 X10'3 (1.1-4.8); LYMPHOCYTES % (AUTO) 8.6 % (21-51); MEAN CORPUSCULAR HEMOGLOBIN 29.4 PG (27.0-31.0); MEAN CORPUSCULAR HGB CONC 33.5 g/dL (33.0-36.5); MEAN CORPUSCULAR VOLUME 87.8 FL (78-98); MEAN PLATELET VOLUME 7.8 FL (7.4-10.4); MONOCYTES # (AUTO) 1.1 X10'3 (0-0.9); MONOCYTES % (AUTO) 8.5 % (2-12); NEUTROPHILS % (AUTO) 81.9 % (42-75); PLATELET COUNT 272 X10'3 (140-440); RED BLOOD COUNT 3.96 X10'6 (4.20-5.60); RED CELL DISTRIBUTION WIDTH 13.6 % (11.5-14.5); WHITE BLOOD COUNT 13.4 X10'3 (4.5-11.0)
[2024-03-24 20:35] LABS: ALANINE AMINOTRANSFERASE 28 U/L (12-78); ALBUMIN 3.4 G/DL (3.4-5.0); ALBUMIN/GLOBULIN RATIO 0.8 (1.1-1.5); ALKALINE PHOSPHATASE 97 IU/L (46-116); ANION GAP 4 (8-16); ASPARTATE AMINO TRANSFERASE 24 U/L (10-37); BILIRUBIN,TOTAL 0.3 MG/DL (0.1-1.0); BLOOD UREA NITROGEN 7 MG/DL (7-18); BUN/CREATININE RATIO 9.5 (10.0-20.0); CALCIUM 8.9 MG/DL (8.5-10.1); CHLORIDE 99 MMOL/L (99-107); CREATININE 0.74 MG/DL (0.40-0.90); GLUCOSE 93 MG/DL (70-104); POTASSIUM 4.5 MMOL/L (3.5-5.1); SODIUM 133 MMOL/L (135-145); TOTAL CARBON DIOXIDE 30.5 MMOL/L (24-32); TOTAL PROTEIN 7.8 G/DL (6.4-8.2); eCRCL 105 ML/MIN; eGFR 90 ML/MIN
[2024-03-24] MEDS: ketorolac trometh 15mg/ml vial 15 MG/ML ML IV ONE (20:38)
[2024-03-24 20:44] LABS: PRO BRAIN NATRIURETIC PEPTIDE 49 PG/ML (0-125)
[2024-03-24 23:08] LABS: BILIRUBIN,URINE NEGATIVE (Neg); CLARITY,URINE SLIGHTLY CLOUDY (Clear); COLOR,URINE YELLOW (Yellow); GLUCOSE, URINE NEGATIVE (Neg); KETONES,URINE NEGATIVE (Neg); LEUKOCYTE ESTERASE ,URINE MODERATE (Neg); NITRITES, URINE NEGATIVE (Neg); OCCULT BLOOD,URINE NEGATIVE (Neg); PROTEIN,URINE NEGATIVE (Neg); UROBILINOGEN,URINE 0.2 E.U/dL (0.2-1.0)
[2024-03-24 23:14] LABS: UA COLLECTION TYPE CLN CATCH MIDSTREAM
[2024-03-24 23:16] LABS: BACTERIA,URINE 4+ /HPF (Neg); RBC,URINE NONE SEEN /HPF (0-2); SQUAMOUS EPITHELIAL CELL,UR FEW /LPF (FEW); WBC,URINE 50-100 /HPF (0-4)
[2024-03-24 23:32] LABS: URINE AMPHETAMINE SCREEN POSITIVE (Neg); URINE BARBITUATE SCREEN NEGATIVE (Neg); URINE BENZODIAZEPINES SCREEN NEGATIVE (Neg); URINE CANNABINOID SCREEN POSITIVE (Neg); URINE COCAINE SCREEN NEGATIVE (Neg); URINE METHADONE SCREEN POSITIVE (Neg); URINE OPIATE SCREEN NEGATIVE (Neg); URINE PHENCYCLIDINE SCREEN NEGATIVE (Neg)
[2024-03-24 23:38] LABS: URINE HCG NEGATIVE (NEG)
[2024-03-24] MEDS: CefTRIAXone/D5W-Rocephin 1gm 50 ML IV ONE (23:53)
[2024-03-25 00:24] VITALS: BP 124/78; PULSE 99; RESP 16; TEMP 98.4; O2SAT 98
[2024-03-25] MEDS ORDERED: CIPR-202 PO (00:38)
== END 2024-03-25 00:48 | disposition home or self-care (01) ==
LOC: ER 19:24
DX: N10 Acute pyelonephritis (principal); I50.9 Heart failure, unspecified; F11.90 Opioid use, unspecified, uncomplicated
CPT/HCPCS: 36415; 71045; 80053; 80305; 81001; 81025; 83605; 83880; 84145; 84484; 85025; 87040; 87077; 87088; 87186; 87502; 87503; 93005; 96361; 96365; 96375; 99285; J0696; J1885; J7030